=== PATIENT | male | born 1995 | race Caucasian/White ===

== ENCOUNTER 2021-06-09 12:35 | Outpatient (REF) | payer BC, SELFPAY ==
[2021-06-09 14:48] LABS: Alanine Aminotransferase 41 U/L (0-40); Albumin Level 4.6 g/dL (3.5-5.0); Alkaline Phosphatase 67 U/L (39-117); Anion Gap 11 (12-20); Aspartate Amino Transferase 27 U/L (5-37); Bilirubin Total 1.7 mg/dL (0.0-1.0); Blood Urea Nitrogen 14 mg/dL (9-16); Calcium 9.5 mg/dL (8.4-10.2); Carbon Dioxide 29 mmol/L (22-29); Chloride 104 mmol/L (96-108); Cholesterol 212 mg/dL; Estimated Glomerular Filt Rate > 60; Glucose Fasting 79 mg/dL (60-99); HDL Cholesterol 39 mg/dL; LDL Cholesterol Calculated 155 mg/dl; Potassium 3.9 mmol/L (3.3-5.1); Sodium 140 mmol/L (135-145); Total Protein 7.1 g/dL (6.5-8.0); Triglycerides 91 mg/dL
== END 2021-06-09 12:36 | disposition home or self-care (01) ==
LOC: HO.HMGCLDS 12:35
PROVIDERS: PCP Internal Medicine; Visit Provider Internal Medicine
DX: Z00.00 Encounter for general adult medical examination without abnormal findings (principal)
CPT/HCPCS: 36415; 80053; 80061

== ENCOUNTER 2021-10-21 09:32 | Outpatient (REF) | payer BC, SELFPAY ==
[2021-10-21 11:41] LABS: COVID-19 Test Positive (Negative); IDNOW Serial# 16C4AD1C
== END 2021-10-21 09:33 | disposition home or self-care (01) ==
LOC: HO.LAB 09:32
PROVIDERS: Visit Provider Internal Medicine
DX: Z20.822 Contact with and (suspected) exposure to COVID-19 (principal)
CPT/HCPCS: 87635; C9803

== ENCOUNTER 2021-10-26 09:21 | Outpatient (REF) | payer BC, SELFPAY ==
[2021-10-26 10:19] LABS: COVID-19 Test Negative (Negative); IDNOW Serial# 16C4AD1C
== END 2021-10-26 09:22 | disposition home or self-care (01) ==
LOC: HO.LAB 09:21
PROVIDERS: Visit Provider Internal Medicine
DX: Z20.822 Contact with and (suspected) exposure to COVID-19 (principal)
CPT/HCPCS: 87635; C9803

== ENCOUNTER 2023-02-01 12:40 | Outpatient (REF) | payer BC, SELFPAY ==
[2023-02-01 13:57] LABS: MANUAL DIFF FLAG NO
[2023-02-01 14:00] LABS: Basophils Absolute Auto 0.1 X10*3/uL (0.0-0.2); Basophils Percent Auto 0.9 % (0-2); Eosinophils Absolute Auto 0.1 X10*3/uL (0.0-0.4); Eosinophils Percent Auto 1.7 % (0-4); Hematocrit 49.1 % (42.0-52.0); Hemoglobin 16.5 g/dl (14.0-18.0); Imm Gran Abs Auto 0.05 X10*3/uL (0.00-0.03); Imm Gran Pct Auto 0.6 % (0.0-0.4); Lymphocytes Absolute Auto 2.6 X10*3/uL (1.2-4.9); Lymphocytes Percent Auto 32.4 % (20-40); Mean Corpuscular HGB Conc 33.6 g/dl (31.0-36.0); Mean Corpuscular Hemoglobin 30.8 pg (27.0-33.0); Mean Corpuscular Volume 91.6 fL (80.0-98.0); Mean Platelet Volume 10.2 fL (9.4-12.4); Monocytes Absolute Auto 0.9 X10*3/uL (0.1-1.2); Monocytes Percent Auto 10.5 % (2-11); Neutrophils Absolute Auto 4.4 x10*3/uL (2.0-8.3); Neutrophils Percent Auto 53.9 % (45-73); Platelet Count 209 X10*3/uL (160-400); Red Blood Count 5.36 X10*6/uL (4.60-5.80); Red Cell Distribution Width 11.8 % (11.0-16.0); White Blood Count 8.1 X10*3/uL (4.8-10.8)
[2023-02-01 14:27] LABS: Alanine Aminotransferase 20 U/L (0-40); Albumin Level 4.7 g/dL (3.5-5.0); Alkaline Phosphatase 69 U/L (39-117); Anion Gap 12 (12-20); Aspartate Amino Transferase 20 U/L (5-37); Bilirubin Total 2.3 mg/dL (0.0-1.0); Blood Urea Nitrogen 16 mg/dL (9-16); Calcium 9.3 mg/dL (8.4-10.2); Carbon Dioxide 29 mmol/L (22-29); Chloride 104 mmol/L (96-108); Cholesterol 235 mg/dL; Estimated Glomerular Filt Rate > 60; Glucose Fasting 89 mg/dL (60-99); HDL Cholesterol 38 mg/dL; LDL Cholesterol Calculated 166 mg/dl; Potassium 4.4 mmol/L (3.3-5.1); Sodium 141 mmol/L (135-145); Total Protein 7.3 g/dL (6.5-8.0); Triglycerides 157 mg/dL
== END 2023-02-01 12:41 | disposition home or self-care (01) ==
LOC: HO.HMGCLDS 12:40
PROVIDERS: PCP Internal Medicine; Visit Provider Internal Medicine
DX: Z00.00 Encounter for general adult medical examination without abnormal findings (principal); E78.5 Hyperlipidemia, unspecified
CPT/HCPCS: 36415; 80053; 80061; 85025

== ENCOUNTER 2023-03-08 16:00 | Outpatient (RCR) | payer BC, SELFPAY ==
--- NOTE | 2023-01-20 15:52 | MHC.PT.EP ---
[facility] [place] Office [place] Office [place] Office [address] Jam Esparza [address] [phone] F: [phone] F: [phone] F: [phone] F: [phone] Physical Therapy Plan of Care Date of Evaluation: Date of Surgery: n/a Diagnosis: pain in R shoulder, neck strain Assessment: Patient is a 27 year old male presenting to PT with complaints of pain in his R shoulder and neck. Pt reports onset of pain began about 1 year ago due to injuring his shoulder when lifting and it progressively made its way to his neck. He presents today with impairments in pain, cervical ROM, DNF strength, periscap strength, posture. 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 Pt expresses penitentiary goal of returning to PLOF, and is motivated to work towards this in PT. Clinical presentation today is most consistent with signs and sx associated with R shoulder and neck pain and pt will benefit from skilled PT 2 week x 4 weeks to address the following problems and impairments noted upon evaluation: pain, cervical ROM, DNF strength, periscap strength, posture. These problems limit the patient with the following functional activities: reaching, working, pulling, looking down, boxing>10 min. The prescribed treatment plan of care is medically necessary. Co-morbidities of none were identified and taken into considerations of plan of care. Pt was educated on HEP, role of PT, prognosis, POC. Frequency and Duration: The patient will be seen 2 x week x 4 weeks Short Term Goals: Pt will demonstrate improved periscap strength by 1/3 grade in 2 weeks for improved scap stability. Pt will demonstrate less ttp to UT in 2 weeks. Pt will demonstrate compliance with initial HEP in 2 visits. Jail Goals: Pt will demonstrate improved NDI by 5% in 4 weeks for improved functional mobility. Pt will demonstrate improved SPADI score by 13 points in 4 weeks for improved functional mobility. Pt will demonstrate ability to work with min to no pain or discomfort in 4 weeks for return to PLOF. Treatment Plan: Modalities to reduce pain, spasms and effusion. Manual therapy to restore motion and function. Therapeutic exercise to improve strength and flexibility. Neuromuscular re-education for posture and balance. Therapeutic activities to return to functional activities of daily living. Electronically signed by: Chrystal Villarreal, PT, DPT, ATC Please sign and return to therapist. Thank you for your referral.
--- NOTE | 2023-04-07 08:50 | MHC.PT.DC ---
[facility] [place] Office [place] Office [place] Office [address] Jam Esparza [address] [phone] F: [phone] F: [phone] F: [phone] F: [phone] Physical Therapy Discharge Report Diagnosis: pain in R shoulder, neck strain Date of Surgery: n/a Date of Evaluation: 01/20/23 Date of Discharge: 04/07/23 Treatments to Date: 7 Cancellations to Date: 4 No Shows to Date: 2 Discharge Status: Visit Non-compliance Discharge Summary: Pt has failed to comply with [facility] attendance policy and no showed the last 2 visits. Pt to be d/c per policy. Electronically signed by: Chrystal Villarreal PT, DPT, ATC Please sign and return to therapist. Thank you for your referral.
== END 2023-04-07 08:50 | disposition home or self-care (01) ==
LOC: HO.PTCHIC 16:00
PROVIDERS: PCP Internal Medicine; Visit Provider Internal Medicine
DX: M25.511 Pain in right shoulder (principal)
CPT/HCPCS: 97110; 97140; 97161

== ENCOUNTER 2023-05-09 08:10 | Outpatient (AMB) | payer BC, SELFPAY ==
--- NOTE | 2023-05-09 08:15 | MHC.OFFWIV ---
Intake Vital Signs 05/09/23 08:16 Pulse 56 Pulse Source Pulse Oximeter Temp 98.1 F Temp Source Oral Pulse Oximetry (%) 98 Oxygen Delivery Method Room Air Intake Visit Reasons: EP Sore throat, Pain, Vision RT eye Intake Note: Pt states pain in throat near lymph node, vision blur started this morning OD 20/15 OS 20/30 OU 20/15 Patient Tobacco Use Status: Never used Tobacco Allergies No Known Allergies Allergy (Verified 05/09/23 09:20) Medication List - Last Reconciled 05/09/23 by Osorio Dao MD No Known Home Meds Do you need a note to return to daycare/school/sports/work: Yes HPI EP Sore throat, Pain, Vision RT eye HPI Details 27-year-old male presents to the office for a sick visit. Patient is reporting symptoms of pain on swallowing. Symptoms present for the past few days. Pain is also present when he turns his head to the right side. Feeling tired. No fevers or chills. No nausea or vomiting. [facility] Medical History Annual physical exam Hyperlipidemia Shoulder pain, right Tinnitus Vertigo Surgical History No pertinent past surgical history Family History Mother No problems noted. Social History Household Members Other:: lives with parents, works for [employer] Housing: House Patient Tobacco Use Status: Never used Tobacco e-Cigarette/Vaping Use: Never Used Second Hand Smoke Exposure: Yes Current occupational status: employed Cognitive needs: No Hearing needs: No Vision needs: No Physical Exam Vital Signs: Last Vital Signs Temp 98.1 F 05/09/23 08:16 Pulse 56 05/09/23 08:16 Pulse Ox 98 05/09/23 08:16 Oxygen Delivery Method Room Air 05/09/23 08:16 Const General: cooperative and healthy appearing Nutritional Appearance: well nourished Orientation/consciousness: patient oriented x3 Limitations: no limitations HEENT Head: Yes normal to inspection Eyes General: appearance normal, both eyes and all related structures Neck Other: Solitary painful lymph node behind the sternocleidomastoids on the right side. Neck: Yes normal visual inspection Chest Chest palpation & inspection: normal palpation of entire chest wall Resp Effort & Inspection: normal respiratory effort Neuro General: patient oriented x3 Results AMB Rapid Strep AMB Rapid Strep Negative Last Edit by Jessica Armstrong CMA on 05/09/23 09:11 Results Reviewed Results Reviewed: Laboratory Last Values Strep Scn Rapid Clinic Negative 05/09/23 09:10 Assessment & Plan Assessment & Plan (1) Cervical lymphadenopathy: Code(s): R59.0 - Localized enlarged lymph nodes Plan: Antibiotics called in. Increase fluid intake. Strep test reviewed. Orders: Orders AMB Rapid Strep Screen Today Z13.9 - Encounter for screening, unspecified Coding Level of Care Code Est Pt Level 3 (91063) Diagnoses Cervical lymphadenopathy R59.0
[2023-05-09 08:16] VITALS: PULSE 56; TEMP 36.7; O2SAT 98
== END 2023-05-09 09:56 | disposition home or self-care (01) ==
PROVIDERS: PCP Internal Medicine; Visit Provider Internal Medicine
DX: Z13.9 Encounter for screening, unspecified (principal); R59.0 Localized enlarged lymph nodes
CPT/HCPCS: 87880; 99213

== ENCOUNTER 2023-05-10 08:07 | Outpatient (AMB) | payer BC, SELFPAY ==
--- NOTE | 2023-05-10 08:38 | AM.OFFWIN_ITS ---
Intake Vital Signs 05/10/23 08:43 Height 5 ft 8 in BP 100/60 Blood Pressure Location Rt brachial Position Sitting Pulse 81 Pulse Source Pulse Oximeter Temp 97.8 F Temp Source Temporal Artery Scan Pulse Oximetry (%) 98 Oxygen Delivery Method Room Air Intake Visit Reasons: EP Swollen Glands/Fever,headache [phone] Patient Tobacco Use Status: Never used Tobacco Allergies No Known Allergies Allergy (Verified 05/09/23 09:20) Do you need a note to return to daycare/school/sports/work: No HPI HPI Comments History of Present Illness Details [id number] 27-year-old male history of tinnitus presents for a sick visit reporting fatigue, malaise, subjective fevers and chills, swollen lymph nodes, headache (diffuse in nature, feels like typical, pressure-like bilaterally) throat d iscomfort for the past few days worsening. Was seen here yesterday is on keflex, taking as prescribed. No known sick contacts. Denies chest pain, shortness of breath, dizziness, vision changes, weakness, nausea, vomiting, abdominal pain. PE- Pharynx normal.? Uvula midline. Bilateral tonsils erythematous, no edema, no exudate, no signs of abscess. Speaking in full sentences controlling secre tions well. Submandibular lymphadenopathy bilaterally. Neuro nonfocal cerebellar intact Likely upper respiratory infection versus viral illness versus sinusitis vs pharyngitis. No signs of peritonsillar, retropharyngeal, epiglottitis. No signs of threatened airway. No signs of pneumonia. Unlikely meningitis or encephalitis. Unlikely stroke, posterior stroke, intracranial hemorrhage. Strep negative yesterday, no need for repeat test, patient also on antibiotics Plan should continue to take his antibiotics, will prescribe prednisone. Educated patient on diagnosis and treatment plan, answered all question, patient verbalizes understanding. At this time patient will be discharged home, advised to return with new or worsening symptoms. Educated on worrisome signs and symptoms and when to return. At this time I feel comfortable discharge home. [facility] Medical History Annual physical exam Hyperlipidemia Shoulder pain, right Tinnitus Vertigo Surgical History No pertinent past surgical history Family History Mother No problems noted. Social History Household Members Other:: lives with parents, works for [employer] Housing: House Patient Tobacco Use Status: Never used Tobacco e-Cigarette/Vaping Use: Never Used Second Hand Smoke Exposure: Yes Current occupational status: employed Cognitive needs: No Hearing needs: No Vision needs: No Review of Systems Const Details: Constitutional : No Weight loss, + Fever, + Chills, + Fatigue, + Malaise ENT/Mouth : + sore throat, No Rhinorrhea Eyes: No Eye Pain, No Swelling, No Redness Cardiovascular : No Chest Pain, No SOB, No Dyspnea on Exertion, No Orthopnea, No Edema, No Palpitations Respiratory : No Cough, No Sputum, No Wheezing Gastrointestinal : No Nausea, No Vomiting, No Diarrhea, No Constipation, No abdominal Pain, No Hematochezia, No Melena Genitourinary : No Dysuria, No Urinary Frequency, No Hematuria, Musculoskeletal : No joint pain, No Myalgias, No Joint Swelling Skin : No Skin Lesions, No rash Neuro : No Weakness, No Numbness, No Dizziness, No Headache Psych : No Anxiety/Panic, No Depression All other systems reviewed and are negative All systems reviewed & are unremarkable except as noted in HPI and below Physical Exam Vital Signs: Last Vital Signs Temp 97.8 F 05/10/23 08:43 Pulse 81 05/10/23 08:43 BP 100/60 05/10/23 08:43 Pulse Ox 98 05/10/23 08:43 Oxygen Delivery Method Room Air 05/10/23 08:43 Vital signs stable Appearance: Alert.? Oriented X3.? No acute distress.? Nontoxic appearing Head: Normocephalic, atraumatic, no step-offs or deformities Eyes: Pupils equal, round and reactive to light.? ENT: Pharynx normal.? Uvula midline. Bilateral tonsils erythematous, no edema, no exudate, no signs of abscess. Speaking in full sentences controlling secretions well. Submandibular lymphadenopathy bilaterally. Neck: Normal inspection.? Neck supple.? CVS: Normal heart rate and rhythm.? Pulses normal.? Respiratory: No respiratory distress.? Breath sounds normal.? Abdomen: Soft and nontender.? Skin: Skin warm and dry.? Normal skin color.? Normal skin turgor.? Extremities: No lower extremity edema.? No calf ttp. 5/5 strength to bilateral upper and lower extremities Neuro: Oriented X 3.? No motor deficit.? No sensory deficit. CN 2-12 intact . Normal luxcgx-ku-aadk, xzni-rv-wonf, steady tandem gait. NIH stroke scale 0. Assessment & Plan Assessment & Plan (1) Upper respiratory infection: Code(s): J06.9 - Acute upper respiratory infection, unspecified (2) Lymphadenopathy: Code(s): R59.1 - Generalized enlarged lymph nodes Plan Take your medications as prescribed. If you were prescribed antibiotics today, it is important that you take your medication to their entirety, do not skip any doses, do not finish them early. Follow-up with your primary care provider this week. Return to the emergency department with new or worsening symptoms. Such as fevers, chills, chest pain, shortness of breath, nausea, vomiting, dizziness, headache, vision changes, lethargy In case of emergency call 911 Medications: New prednisone 20 mg PO DAILY 5 days 5 tabs 0RF Coding Level of Care Code Est Pt Level 3 (68588) Diagnoses Upper respiratory infection J06.9 Lymphadenopathy R59.1
[2023-05-10 08:43] VITALS: BP 100/60; PULSE 81; TEMP 36.6; O2SAT 98
== END 2023-05-10 08:59 | disposition home or self-care (01) ==
PROVIDERS: PCP Internal Medicine; Visit Provider Physician Assistant
DX: J06.9 Acute upper respiratory infection, unspecified (principal); R59.1 Generalized enlarged lymph nodes
CPT/HCPCS: 99213

== ENCOUNTER 2023-09-23 09:50 | Outpatient (AMB) | payer BC, SELFPAY ==
--- NOTE | 2023-09-23 11:08 | AM.OFFWIN_ITS ---
Intake Vital Signs 09/23/23 11:11 Height 5 ft 8 in Weight 81.647 kg BMI 27.4 BP 120/66 Blood Pressure Location Rt brachial Position Sitting Pulse 62 Pulse Source Pulse Oximeter Temp 97.6 F Temp Source Oral Pulse Oximetry (%) 98 Oxygen Delivery Method Room Air Intake Visit Reasons: EP Covid Testing work note 234 Intake Note: Patient here for covid symptoms and would like to be tested. Patient Tobacco Use Status: Never used Tobacco Allergies No Known Allergies Allergy (Verified 09/23/23 11:10) Do you need a note to return to daycare/school/sports/work: Yes HPI HPI Comments History of Present Illness Details 28-year-old male presents with fatigue, malaise since last Monday, having intermittent coughs as well. He thinks he got sick at a [employer] green party. He is here requesting a work no and requesting to get COVID tested prior to returning to work. He took yesterday off. Secondary to not feeling well. At this time denies fevers, chills, chest pain, shortness of breath, nausea, vomiting, abdominal pain Physical exam benign This is likely viral illness. Will rule out COVID. Signs of acute respiratory distress, ACS, PE, dissection. Plan COVID test. Educated patient on diagnosis and treatment plan, answered all question, patient verbalizes understanding. At this time patient will be discharged home, advised to return with new or worsening symptoms. Educated on worrisome signs and symptoms and when to return. At this time I feel comfortab le discharge home. [facility] Medical History Hyperlipidemia Shoulder pain, right Annual physical exam Tinnitus Vertigo Surgical History No pertinent past surgical history Family History Mother No problems noted. Social History Household Members Other:: lives with parents, works for [employer] Housing: House Patient Tobacco Use Status: Never used Tobacco e-Cigarette/Vaping Use: Never Used Second Hand Smoke Exposure: Yes Current occupational status: employed Cognitive needs: No Hearing needs: No Vision needs: No Review of Systems Const Details: Constitutional : No Weight loss, No Fever, No Chills, + Fatigue, + Malaise ENT/Mouth : No sore throat, No Rhinorrhea Eyes: No Eye Pain, No Swelling, No Redness Cardiovascular : No Chest Pain, No SOB, No Dyspnea on Exertion, No Orthopnea, No Edema, No Palpitations Respiratory : + Cough, No Sputum, No Wheezing Gastrointestinal : No Nausea, No Vomiting, No Diarrhea, No Constipation, No abdominal Pain, No Hematochezia, No Melena Genitourinary : No Dysuria, No Urinary Frequency, No Hematuria, Musculoskeletal : No joint pain, No Myalgias, No Joint Swelling Skin : No Skin Lesions, No rash Neuro : No Weakness, No Numbness, No Dizziness, No Headache Psych : No Anxiety/Panic, No Depression All other systems reviewed and are negative All systems reviewed & are unremarkable except as noted in HPI and below Physical Exam Vital Signs: Last Vital Signs Temp 97.6 F 09/23/23 11:11 Pulse 62 09/23/23 11:11 BP 120/66 09/23/23 11:11 Pulse Ox 98 09/23/23 11:11 Oxygen Delivery Method Room Air 09/23/23 11:11 BMI result Body Mass Index 27.4 vss Appearance: Alert.? Oriented X3.? No acute distress.? Head: Normocephalic, atraumatic, no step-offs or deformities Eyes: Pupils equal, round and reactive to light.? ENT: Pharynx normal.? Neck: Normal inspection.? Neck supple.? CVS: Normal heart rate and rhythm.? Pulses normal.? Respiratory: No respiratory distress.? Breath sounds normal.? Abdomen: Soft and nontender.? Skin: Skin warm and dry.? Normal skin color.? Normal skin turgor.? Extremities: No lower extremity edema.? No calf ttp. 5/5 strength to bilateral upper and lower extremities Neuro: Oriented X 3.? No motor deficit.? No sensory deficit. CN 2-12 intact Assessment & Plan Assessment & Plan (1) Viral illness: Code(s): B34.9 - Viral infection, unspecified Plan Take your medications as prescribed. If you were prescribed antibiotics today, it is important that you take your medication to their entirety, do not skip any doses, do not finish them early. Follow-up with your primary care provider this week. Return to the emergency department with new or worsening symptoms. In case of emergency call 911 Orders: Orders BinaxNOW Covid-19 Ag Today R53.83 - Other fatigue Coding Level of Care Code Est Pt Level 3 (86125) Diagnoses Viral illness B34.9
[2023-09-23 11:11] VITALS: BP 120/66; PULSE 62; TEMP 36.4; O2SAT 98; BMI 27.4
== END 2023-09-23 13:18 | disposition home or self-care (01) ==
PROVIDERS: PCP Internal Medicine; Visit Provider Physician Assistant
DX: B34.9 Viral infection, unspecified (principal)
CPT/HCPCS: 99213

== ENCOUNTER 2023-09-23 11:24 | Outpatient (REF) | payer BC, SELFPAY ==
[2023-09-23 12:19] LABS: Binax Internal Control QC Valid; Binax Now Covid-19 Ag Negative (Negative); Binax Performed by: HO.BONILM
== END 2023-09-23 11:25 | disposition home or self-care (01) ==
LOC: HO.HMGCLDS 11:24
PROVIDERS: PCP Internal Medicine; Visit Provider Physician Assistant
DX: Z11.52 Encounter for screening for COVID-19 (principal); R53.83 Other fatigue
CPT/HCPCS: 87811; C9803

== ENCOUNTER 2024-02-06 11:22 | Outpatient (AMB) | payer BC, SELFPAY ==
[2024-02-06 11:22] VITALS: BP 114/70; PULSE 56; O2SAT 96; BMI 29.2
--- NOTE | 2024-02-06 11:22 | A.OFFPC_ITS ---
Vital Signs 02/06/24 11:22 Height 5 ft 8 in Weight 192 lb BMI 29.2 BP 114/70 Blood Pressure Location Lt brachial Position Sitting Pulse 56 Pulse Source Pulse Oximeter Pulse Oximetry (%) 96 Oxygen Delivery Method Room Air Intake Visit Reasons: Annual PE Intake Note: Pt is here today for PE. Allergies No Known Allergies Allergy (Verified 02/06/24 11:26) Medication List - Last Reconciled 02/06/24 by Michelle Larsen MD No Known Home Meds Tobacco use date assessed: 02/06/24 Dental Screening Dental Screen Date: 02/06/24 Did you have a dental visit in the last 12 months?: Yes Did you have a dental problem in the last 6 months where you did not have access to dental care?: No Was dental information given to patient?: Patient has dentist HPI Annual PE HPI Details Pt presents for PE. PFSH Medical History Hyperlipidemia Shoulder pain, right Annual physical exam Tinnitus Vertigo Surgical History No pertinent past surgical history Family History Mother No problems noted. Social History Household Members Other:: lives with parents, works for [employer] Housing: House Patient Tobacco Use Status: Never used Tobacco e-Cigarette/Vaping Use: Never Used Second Hand Smoke Exposure: Yes service: No Current occupational status: employed Cognitive needs: No Hearing needs: No Vision needs: No Questionnaire Thrive Questionnaire Date Thrive assessed: 02/01/23 I am a: Patient What is your living situation today?: I have a steady place to live Within the past 12 months, did the food you bought not last and you didn't have the money to get more?: Never true Within the past 12 months, did you worry whether your food would run out before you got money to buy more?: Never true THRIVE Score: 0 AUDIT C Alcohol Use Questionnaire (AUDIT-C) 1. How often do you have a drink containing alcohol?: 2-4 times a month 2. How many drinks containing alcohol do you have on a typical day when you are drinking?: 1 or 2 3. How often do you have six or more drinks on one occasion?: Never Total Score: 2 FAMILIA-7 AMB Questionnaire FAMILIA-7 Date FAMILIA - 7 assessed: 02/01/23 Feeling nervous, anxious, or on edge: 1 = Several days Not being able to stop or control worryin = Not at all Worrying too much about different things: 1 = Several days Trouble relaxin = Not at all Being so restless that it is hard to sit still: 0 = Not at all Becoming easily annoyed or irritable: 0 = Not at all Feeling afraid as if something awful might happen: 1 = Several days Total FAMILIA-7 score (0-4 normal; 5-9 mild; 10-14 moderate; 15-21 severe): 3 Source: Developed by Drs. Kang Givens, Sherly Ball, Nick Junior and colleagues, with an educational freddy from [employer]. Review of Systems Const All systems reviewed & are unremarkable except as noted in HPI and below Reports no additional complaints Eyes Reports no additional complaints ENT Reports no additional complaints Card Reports no additional complaints Resp Reports no additional complaints GI Reports no additional complaints Reports no additional complaints Physical exam (Primary Care) Vital Signs: Last Vital Signs Pulse 56 02/06/24 11:22 BP 114/70 02/06/24 11:22 Pulse Ox 96 02/06/24 11:22 Oxygen Delivery Method Room Air 02/06/24 11:22 BMI result Body Mass Index 29.2 Tobacco/Smoking Status: Tobacco use Status Tobacco use date assessed 02/06/24 02/06/24 11:28 Patient Tobacco Use Status Never used Tobacco 02/06/24 11:28 e-Cigarette/Vaping Use Never Used 02/06/24 11:28 Thrive Assessment: Date of Thrive Assessment Date Thrive assessed 02/01/23 02/06/24 11:28 Const General: no acute distress HENMT Head: Yes normal to inspection Ears: hearing grossly normal bilaterally Face and sinus: Yes normal facial exam Mouth: Normal oral and palatal mucosa present Throat: Yes posterior oropharynx normal Eyes General: appearance normal, both eyes and all related structures Neck Neck: Yes no lymphadenopathy and Yes supple Resp Effort & Inspection: normal respiratory effort Auscultation: clear to auscultation bilaterally Cardio Rhythm: regular rhythm Heart sounds: S1 normal heart sound present and S2 normal heart sound present GI Inspection: Yes normal to inspection Palpation (GI): Soft to palpation Percussion: Yes normal to percussion Auscultation: normal bowel sounds Assessment and Plan Assessment & Plan (1) Annual physical exam: Code(s): Z00.00 - Encounter for general adult medical examination without abnormal findings Plan: Well-balanced diet regular physical activity discussed with the patient (2) Hyperlipidemia: Code(s): E78.5 - Hyperlipidemia, unspecified Plan: Low-cholesterol diet discussed with the patient he will have blood work today and in 6 months Orders: Orders Lipid Panel Today E78.5 - Hyperlipidemia, unspecified, Z00.00 - Encounter for general adult medical examination without abnormal findings Syphilis Screen Today Z00.00 - Encounter for general adult medical examination without abnormal findings CT NG by PCR Today Z00.00 - Encounter for general adult medical examination without abnormal findings Lipid Panel 6 Months E78.5 - Hyperlipidemia, unspecified Comprehensive Dola. Panel Fast Today E78.5 - Hyperlipidemia, unspecified, Z00.00 - Encounter for general adult medical examination without abnormal findings Complete Blood Count Auto Diff Today E78.5 - Hyperlipidemia, unspecified, Z00.00 - Encounter for general adult medical examination without abnormal findings Hepatitis B,C Profile Today E78.5 - Hyperlipidemia, unspecified, Z00.00 - Encounter for general adult medical examination without abnormal findings UA w Microscopic Today E78.5 - Hyperlipidemia, unspecified, Z00.00 - Encounter for general adult medical examination without abnormal findings HIV Ab/Ag Today Z00.00 - Encounter for general adult medical examination without abnormal findings Coding Level of Care Code Est Pt Prev Care 18-39y(47683) Diagnoses Annual physical exam Z00.00 Hyperlipidemia E78.5
== END 2024-02-06 12:00 | disposition home or self-care (01) ==
PROVIDERS: Visit Provider Internal Medicine
DX: Z00.00 Encounter for general adult medical examination without abnormal findings (principal); E78.5 Hyperlipidemia, unspecified
CPT/HCPCS: 99395

== ENCOUNTER 2024-02-06 11:48 | Outpatient (REF) | payer BC, SELFPAY ==
[2024-02-06 13:20] LABS: Appearance Urine Clear; Color Urine Yellow; Glucose Urine UA Negative (Negative); Leukocyte Esterase Urine Trace (Negative); Nitrite Urine Negative (Negative); PH 6.5 (5.0-9.0); UMIC TRIGGER UA YES; Urine Blood Negative (Negative); Urine Ketones Negative (Negative); Urine Protein Negative (Neg-Trace)
[2024-02-06 13:23] LABS: MANUAL DIFF FLAG NO
[2024-02-06 13:28] LABS: Bacteria Urine None Seen (None Seen); Hyaline Casts Urine 0-2 /LPF (0-2); RBC Urine 0-2 /HPF (0-2); Squamous Epithelial Cell Urine 0-2 /HPF (0-2); WBC Urine 0-5 /HPF (0-5)
[2024-02-06 13:28] LABS: Basophils Absolute Auto 0.1 X10*3/uL (0.0-0.2); Eosinophils Absolute Auto 0.1 X10*3/uL (0.0-0.4); Eosinophils Percent Auto 2.4 % (0-4); Hematocrit 44.3 % (42.0-52.0); Hemoglobin 15.1 g/dl (14.0-18.0); Imm Gran Abs Auto 0.02 X10*3/uL (0.00-0.03); Imm Gran Pct Auto 0.3 % (0.0-0.4); Lymphocytes Percent Auto 34.4 % (20-40); Mean Corpuscular HGB Conc 34.1 g/dl (31.0-36.0); Mean Corpuscular Hemoglobin 31.4 pg (27.0-33.0); Mean Corpuscular Volume 92.1 fL (80.0-98.0); Mean Platelet Volume 10.4 fL (9.4-12.4); Monocytes Absolute Auto 0.6 X10*3/uL (0.1-1.2); Monocytes Percent Auto 10.8 % (2-11); Neutrophils Percent Auto 51.1 % (45-73); Platelet Count 206 X10*3/uL (160-400); Red Blood Count 4.81 X10*6/uL (4.60-5.80); Red Cell Distribution Width 11.5 % (11.0-16.0); White Blood Count 5.9 X10*3/uL (4.8-10.8)
[2024-02-06 14:00] LABS: Alanine Aminotransferase 23 U/L (0-40); Albumin Level 4.6 g/dL (3.5-5.0); Alkaline Phosphatase 55 U/L (39-117); Anion Gap 12 (12-20); Aspartate Amino Transferase 22 U/L (5-37); Bilirubin Total 1.5 mg/dL (0.0-1.0); Blood Urea Nitrogen 12 mg/dL (9-16); Calcium 9.7 mg/dL (8.4-10.2); Carbon Dioxide 29 mmol/L (22-29); Chloride 105 mmol/L (96-108); Cholesterol 205 mg/dL (<200); Estimated Glomerular Filt Rate > 60; Glucose Fasting 91 mg/dL (60-99); HDL Cholesterol 37 mg/dL (>40); LDL Cholesterol Calculated 145 mg/dL (<100); Potassium 4.1 mmol/L (3.3-5.1); Sodium 142 mmol/L (135-145); Total Protein 7.5 g/dL (6.5-8.0); Triglycerides 117 mg/dL (<150)
[2024-02-06 15:15] LABS: CT PCR NOT DETECTED (Not Detect.); NG PCR NOT DETECTED (Not Detect.)
[2024-02-07 04:04] LABS: Syphilis Screen Nonreactive (Nonreactive)
[2024-02-07 04:21] LABS: HBS Num1 0.95 mIU/mL (0-7.99); HBc Num1 0.07 S/CO (0.00-0.79); HBsAGNum1 0.28 S/CO (0.00-0.99); HIV AB/AG Nonreactive (Nonreactive); HIV Num 1 0.04 S/CO (0.00-0.99); Hepatitis B Core Antibody Nonreactive (Nonreactive); Hepatitis B Surface Antigen Negative (Negative); ~HepC Num1 0.06 S/CO (0.00-0.79); ~Hepatitis B Surface Antibody NONREACTIVE (Nonreactive); ~Hepatitis C Antibody Nonreactive (Nonreactive)
== END 2024-02-06 11:49 | disposition home or self-care (01) ==
LOC: HO.HMGCLDS 11:48
PROVIDERS: PCP Internal Medicine; Visit Provider Internal Medicine
DX: E78.5 Hyperlipidemia, unspecified (principal); Z00.00 Encounter for general adult medical examination without abnormal findings
CPT/HCPCS: 0353U; 80053; 80061; 81001; 85025; 86704; 86706; 86780; 86803; 87340; 87389

== ENCOUNTER 2024-07-06 09:25 | Outpatient (REF) | payer BC, SELFPAY ==
[2024-07-06 11:43] LABS: Cholesterol 227 mg/dL (<200); HDL Cholesterol 39 mg/dL (>40); LDL Cholesterol Calculated 163 mg/dL (<100); Triglycerides 125 mg/dL (<150)
== END 2024-07-06 09:26 | disposition home or self-care (01) ==
LOC: HO.HMGCLDS 09:25
PROVIDERS: PCP Internal Medicine; Visit Provider Internal Medicine
DX: E78.5 Hyperlipidemia, unspecified (principal)
CPT/HCPCS: 36415; 80061

== ENCOUNTER 2024-07-08 12:50 | Outpatient (AMB) | payer BC, SELFPAY ==
--- NOTE | 2024-07-08 12:54 | A.OFFPC_ITS ---
Vital Signs 07/08/24 12:55 Height 5 ft 8 in Weight 188 lb BMI 28.6 BP 96/64 Blood Pressure Location Rt brachial Position Sitting Pulse 75 Pulse Source Pulse Oximeter Pulse Oximetry (%) 98 Oxygen Delivery Method Room Air Intake Visit Reasons: Follow up for high cholesterol screening Intake Note: Pt is here today for a follow up visit. Pt c/o R lower back pain that starts wh en he is laying down and when he moves aground it goes away. Allergies No Known Allergies Allergy (Verified 07/08/24 12:56) Medication List - Last Reconciled 07/08/24 by Michelle Larsen MD No Known Home Meds Tobacco use date assessed: 07/08/24 Dental Screening Dental Screen Date: 02/06/24 HPI Follow up for high cholesterol screening HPI Details Patient presents for the follow-up of hyperlipidemia. He has been eating ice cream, cheese and drinking a lot of milk and having steak 3 times a week. Patient complains of chronic right-sided mid back pain positional, occasionally radiating to right side mid abdomen. Patient denies dysuria urinary frequency hematuria nausea vomiting abdominal pain after eating, weakness or numbness in lower extremities. [facility] Medical History Hyperlipidemia Shoulder pain, right Annual physical exam Tinnitus Vertigo Surgical History No pertinent past surgical history Family History Mother No problems noted. Social History Household Members Other:: lives with parents, works for [employer] Housing: House Patient Tobacco Use Status: Never used Tobacco e-Cigarette/Vaping Use: Never Used Second Hand Smoke Exposure: Yes service: No Current occupational status: employed Cognitive needs: No Hearing needs: No Vision needs: No Questionnaire PHQ-9 Over the last 2 weeks, how often have you been bothered by any of the following problems? 1. Little interest or pleasure in doing things: not at all 2. Feeling down, depressed, or hopeless: not at all 3. Trouble falling or staying asleep, or sleeping too much: not at all 4. Feeling tired or having little energy: not at all 5. Poor appetite or overeating: not at all 6. Feeling bad about yourself - or that you are a failure or have let yourself or your family down: not at all 7. Trouble concentrating on things, such as reading the newspaper or watching television: not at all 8. Moving or speaking so slowly that other people could have noticed. Or the opposite - being so fidgety or restless that you have been moving around a lot more than usual: not at all 9. Thoughts that you would be better off or of hurting yourself in some way: not at all Total score: 0 Depression Screening Interpretation: Negative Depression Screening Done: Yes 33079 - PHQ-9 Billing: Yes Source: Developed by Drs. Kang Givens, Sherly Ball, Nick Junior and colleagues, with an educational freddy from [employer]. Thrive Questionnaire Date Thrive assessed: 07/08/24 I am a: Patient What is your living situation today?: I have a steady place to live Within the past 12 months, did the food you bought not last and you didn't have the money to get more?: Never true Within the past 12 months, did you worry whether your food would run out before you got money to buy more?: I choose not to answer this question Do you have trouble paying for medicines?: I choose not to answer this question Do you have trouble getting transportation to medical appointments?: No Do you have trouble paying your heating and electricity bill?: No Do you have trouble taking care of your child, family member or friend?: No Do you have trouble with day-to-day activities such as bathing, preparing meals, shopping, managing finances, etc.?: No Are you currently unemployed and looking for a job?: No Are you interested in more education?: No Please select the resources that you would like help with: None Currently or been in a relationship where the following occur: No concerns reported THRIVE Score: 0 AUDIT C Alcohol Use Questionnaire (AUDIT-C) 1. How often do you have a drink containing alcohol?: 2-4 times a month 2. How many drinks containing alcohol do you have on a typical day when you are drinking?: 1 or 2 3. How often do you have six or more drinks on one occasion?: Never Total Score: 2 FAMILIA-7 AMB Questionnaire FAMILIA-7 Date FAMILIA - 7 assessed: 07/08/24 Feeling nervous, anxious, or on edge: 1 = Several days Not being able to stop or control worryin = Not at all Worrying too much about different things: 0 = Not at all Trouble relaxin = Not at all Being so restless that it is hard to sit still: 1 = Several days Becoming easily annoyed or irritable: 0 = Not at all Feeling afraid as if something awful might happen: 0 = Not at all Total FAMILIA-7 score (0-4 normal; 5-9 mild; 10-14 moderate; 15-21 severe): 2 Source: Developed by Drs. Kang Givens, Sherly Ball, Nick Junior and colleagues, with an educational freddy from [employer]. FAMILIA-7 Assessment Billing FAMILIA-7 Assessment Tool: FAMILIA-7 Assessment 16588 Review of Systems Const All systems reviewed & are unremarkable except as noted in HPI and below ENT Reports no additional complaints Card Reports no additional complaints Resp Reports no additional complaints GI Reports no additional complaints Reports no additional complaints Physical exam (Primary Care) Vital Signs: Last Vital Signs Pulse 75 07/08/24 12:55 BP 96/64 07/08/24 12:55 Pulse Ox 98 07/08/24 12:55 Oxygen Delivery Method Room Air 07/08/24 12:55 BMI result Body Mass Index 28.6 Tobacco/Smoking Status: Tobacco use Status Tobacco use date assessed 07/08/24 07/08/24 13:01 Patient Tobacco Use Status Never used Tobacco 07/08/24 13:01 e-Cigarette/Vaping Use Never Used 07/08/24 12:55 PHQ-9: PHQ-9 Score PHQ-9: Total score 0 07/08/24 13:01 Depression Screening Interpretation: Negative Thrive Assessment: Date of Thrive Assessment Date Thrive assessed 07/08/24 07/08/24 13:01 Currently or been in a relationship where the following occur: No concerns reported Const General: no acute distress HENMT Face and sinus: Yes normal facial exam Resp Effort & Inspection: normal respiratory effort Auscultation: clear to auscultation bilaterally Cardio Rhythm: regular rhythm Heart sounds: S1 normal heart sound present and S2 normal heart sound present GI Inspection: Yes normal to inspection Palpation (GI): Soft to palpation Percussion: Yes normal to percussion Auscultation: normal bowel sounds General: Yes no CVA tenderness Back/Spine/Pelvis Other: There is a tenderness muscle spasm, right mid paraspinal thoracic region, straight leg rising 90 degrees bilaterally deep tendon reflexes 2+ bilaterally Back: no CVA tenderness Assessment and Plan Assessment & Plan (1) Back pain: Code(s): M54.9 - Dorsalgia, unspecified Plan: For chronic back pain x-ray of lumbar spine will be obtained and urinalysis will be checked to rule out microscopic hematuria. Lower back exercise discussed with the patient the symptoms persist she will be referred to physical therapy (2) Hyperlipidemia: Code(s): E78.5 - Hyperlipidemia, unspecified Plan: Low-cholesterol diet increase physical activity discussed with the patient he will return for physical in 6 months with a fasting labs before (3) Annual physical exam: Code(s): Z00.00 - Encounter for general adult medical examination without abnormal findings Orders: Orders UA w Microscopic Today M54.9 - Dorsalgia, unspecified Comprehensive [place]. Panel Fast 6 Months E78.5 - Hyperlipidemia, unspecified, Z00.00 - Encounter for general adult medical examination without abnormal findings Lipid Panel 6 Months E78.5 - Hyperlipidemia, unspecified, Z00.00 - Encounter for general adult medical examination without abnormal findings Complete Blood Count Auto Diff 6 Months E78.5 - Hyperlipidemia, unspecified, Z00.00 - Encounter for general adult medical examination without abnormal findings XR lumbar spine 2-3V Today M54.9 - Dorsalgia, unspecified Coding Level of Care Code Est Pt Level 3 (57693) Diagnoses Back pain M54.9 Hyperlipidemia E78.5 Annual physical exam Z00.00 Additional Codes FAMILIA-7 Assessment Billing - FAMILIA-7 Assessment Tool: FAMILIA-7 Assessment 34173 ([id number])
[2024-07-08 12:55] VITALS: BP 96/64; PULSE 75; O2SAT 98; BMI 28.6
== END 2024-07-08 15:03 | disposition home or self-care (01) ==
PROVIDERS: PCP Internal Medicine; Visit Provider Internal Medicine
DX: M54.9 Dorsalgia, unspecified (principal); E78.5 Hyperlipidemia, unspecified; Z00.00 Encounter for general adult medical examination without abnormal findings

== ENCOUNTER → 2024-07-08 12:50 | Outpatient (BNVA) | payer BC, SELFPAY | PROVIDERS: PCP Internal Medicine; Visit Provider Internal Medicine ==

== ENCOUNTER 2024-07-08 13:49 | Outpatient (REF) | payer BC, SELFPAY ==
--- NOTE | ~2024-07-08 | XR_ITS ---
EXAMINATION: XR LUMBOSACRAL SPINE CLINICAL INFORMATION: M54.9 - Dorsalgia, unspecified COMPARISON: None available. TECHNIQUE: Three views of the lumbosacral spine. FINDINGS: The vertebral bodies and posterior elements are normal. The disc spaces are preserved and the vertebral alignment is normal. The paraspinal soft tissues are normal. XR/XR lumbar spine 2-3V IMPRESSION: Normal lumbar spine radiographs. Electronically signed by: Josias Riley MD 09/15/2024 03:19 PM LE[facility]
[2024-07-08 16:49] LABS: Appearance Urine Clear; Color Urine Yellow; Glucose Urine UA Negative (Negative); Leukocyte Esterase Urine Negative (Negative); Nitrite Urine Negative (Negative); Urine Blood Negative (Negative); Urine Ketones Negative (Negative); Urine Protein Negative (Neg-Trace)
[2024-07-08 16:56] LABS: Bacteria Urine None Seen (None Seen); Hyaline Casts Urine 0-2 /LPF (0-2); RBC Urine 0-2 /HPF (0-2); Squamous Epithelial Cell Urine 0-2 /HPF (0-2); WBC Urine 0-5 /HPF (0-5)
== END 2024-07-08 13:50 | disposition home or self-care (01) ==
LOC: HO.HMGCX 13:49
PROVIDERS: PCP Internal Medicine; Visit Provider Internal Medicine
DX: E78.5 Hyperlipidemia, unspecified (principal); M54.9 Dorsalgia, unspecified
CPT/HCPCS: 72100; 81001; 96127

== ENCOUNTER → 2024-07-08 13:57 | Outpatient (BNV) | payer BC, SELFPAY | PROVIDERS: PCP Internal Medicine; Visit Provider Radiology Diagnostic Radiology | DX: M54.9 Dorsalgia, unspecified (principal) | CPT/HCPCS: 72100 ==

== ENCOUNTER 2024-11-01 08:23 | Outpatient (AMB) | payer BC, SELFPAY ==
--- NOTE | 2024-11-01 09:22 | AM.OFFWIN_ITS ---
Intake Vital Signs 11/01/24 09:24 Weight 189 lb BP 100/62 Blood Pressure Location Rt brachial Position Sitting Pulse 50 Pulse Source Pulse Oximeter Temp 97.9 F Temp Source Oral Pulse Oximetry (%) 99 Oxygen Delivery Method Room Air Intake Visit Reasons: EP Stomach troubles Intake Note: Patient here for fevers, stomach pain which started a couple of days ago. Patient Tobacco Use Status: Never used Tobacco Allergies No Known Allergies Allergy (Verified 11/01/24 09:25) Do you need a note to return to daycare/school/sports/work: Yes HPI HPI Comments History of Present Illness Details History of Present Illness - The patient is a 29-year-old male pres enting with gastrointestinal symptoms. - Nausea and vomiting started two days b efore the consultation, noted around 5 or 6 PM. - Diarrhea was present but without hemat ochezia or melena. - Fever was associated with the initial symptoms but resolved by the prior day. - The patient seeks a doctor's note for work-related sick leave due to symptomatic illness. - Advised on hydration, specifically alt ernating water and Gatorade, due to the suspected presence of a Norovirus infection. Physical Exam General: Cooperative, healthy appearing, comfortable, no acute distress and well developed Orientation: Patient oriented x3 Limitations: No limitations Head: Normal to inspection Ears: Hearing grossly normal bilaterally Nose: Normal external nose present Face and sinus: Normal facial exam Eyes: Appearance normal, both eyes and all related structures Neck: Normal visual inspection and Yes full ROM Respiratory: Normal respiratory effort and able to speak in complete sentences. Skin: No rashes or lesions noted Neuro: Patient oriented x3 Extremities: Normal to inspection [facility] Medical History Hyperlipidemia Shoulder pain, right Annual physical exam Tinnitus Vertigo Surgical History No pertinent past surgical history Family History Mother No problems noted. Social History Household Members Other:: lives with parents, works for [employer] Housing: House Patient Tobacco Use Status: Never used Tobacco e-Cigarette/Vaping Use: Never Used Second Hand Smoke Exposure: Yes service: No Current occupational status: employed Cognitive needs: No Hearing needs: No Vision needs: No Review of Systems Const All systems reviewed & are unremarkable except as noted in HPI and below Physical Exam Vital Signs: Last Vital Signs Temp 97.9 F 11/01/24 09:24 Pulse 50 11/01/24 09:24 BP 100/62 11/01/24 09:24 Pulse Ox 99 11/01/24 09:24 Oxygen Delivery Method Room Air 11/01/24 09:24 Assessment & Plan Assessment & Plan (1) Viral gastroenteritis: Code(s): A08.4 - Viral intestinal infection, unspecified Plan: The suspected diagnosis of viral gastroenteritis aligns with the symptomatology presented by the patient. Emphasis was placed on ensuring adequate hydration through consumption of water and electrolyte-rich fluids. The importance of hand hygiene and environmental disinfection using soap and water was communicated to prevent the spread of the Norovirus. The patient was informed of the contagious nature of the virus and advised to monitor his symptoms. Stable vital signs suggest adequate physiological management thus far. A medical note was provided to accommodate workplace policies on illness-related absences. Emphasized the importance of environmental cleanliness and frequent handwashing with soap and water to prevent viral transmission. Patient was informed and verbally consented to the use of an ambient scribe for clinic note documentation during this visit. Coding Level of Care Code Est Pt Level 3 (37789) Diagnoses Viral gastroenteritis A08.4
[2024-11-01 09:24] VITALS: BP 100/62; PULSE 50; TEMP 36.6; O2SAT 99
== END 2024-11-01 13:04 | disposition home or self-care (01) ==
PROVIDERS: PCP Internal Medicine; Visit Provider Physician Assistant
DX: A08.4 Viral intestinal infection, unspecified (principal)

== ENCOUNTER 2025-06-17 10:36 | Outpatient (AMB) | payer BC, SELFPAY ==
[2025-06-17 10:39] VITALS: BP 120/72; PULSE 68; TEMP 36.9; O2SAT 98; BMI 29.6
--- NOTE | 2025-06-17 10:39 | MHC.PC.OV ---
Vital Signs 06/17/25 10:39 Height 5 ft 8 in Weight 195 lb BMI 29.6 BP 120/72 Blood Pressure Location Lt brachial Position Sitting Pulse 68 Pulse Source Pulse Oximeter Temp 98.4 F Temp Source Oral Pulse Oximetry (%) 98 Oxygen Delivery Method Room Air Intake Visit Reasons: Annual PE Intake Note: Pt is here today for PE. Allergies No Known Allergies Allergy (Verified 06/17/25 10:52) Medication List - Last Reconciled 06/17/25 by Michelle Larsen MD No Known Home Meds Tobacco use date assessed: 06/17/25 Dental Screening Dental Screen Date: 06/17/25 Did you have a dental visit in the last 12 months?: Yes Did you have a dental problem in the last 6 months where you did not have access to dental care?: No Was dental information given to patient?: Patient has dentist HPI Annual PE HPI Details Pt presents for PE PFSH Medical History Hyperlipidemia Shoulder pain, right Annual physical exam Tinnitus Vertigo Surgical History No pertinent past surgical history Family History Mother No problems noted. Social History Household Members Other:: lives with parents, works for [employer] Housing: House Patient Tobacco Use Status: Never used Tobacco e-Cigarette/Vaping Use: Never Used Second Hand Smoke Exposure: Yes service: No Current occupational status: employed Cognitive needs: No Hearing needs: No Vision needs: No Questionnaire PHQ-9 Over the last 2 weeks, how often have you been bothered by any of the following problems? 1. Little interest or pleasure in doing things: not at all 2. Feeling down, depressed, or hopeless: not at all 3. Trouble falling or staying asleep, or sleeping too much: not at all 4. Feeling tired or having little energy: not at all 5. Poor appetite or overeating: not at all 6. Feeling bad about yourself - or that you are a failure or have let yourself or your family down: not at all 7. Trouble concentrating on things, such as reading the newspaper or watching television: not at all 8. Moving or speaking so slowly that other people could have noticed. Or the opposite - being so fidgety or restless that you have been moving around a lot more than usual: not at all 9. Thoughts that you would be better off or of hurting yourself in some way: not at all Total score: 0 Depression Screening Interpretation: Negative Depression Screening Done: Yes 12875 - PHQ-9 Billing: Yes Source: Developed by Drs. Kang Givens, Sherly Blal, Nick Junior and colleagues, with an educational freddy from [employer]. Thrive Questionnaire Date Thrive assessed: 06/17/25 I am a: Patient What is your living situation today?: I have a steady place to live Within the past 12 months, did the food you bought not last and you didn't have the money to get more?: Never true Within the past 12 months, did you worry whether your food would run out before you got money to buy more?: Never true Do you have trouble paying for medicines?: No Do you have trouble getting transportation to medical appointments?: No Do you have trouble paying your heating and electricity bill?: No Do you have trouble taking care of your child, family member or friend?: No Do you have trouble with day-to-day activities such as bathing, preparing meals, shopping, managing finances, etc.?: No Are you currently unemployed and looking for a job?: No Are you interested in more education?: No Please select the resources that you would like help with: None Currently or been in a relationship where the following occur: No concerns reported THRIVE Score: 0 AUDIT C Alcohol Use Questionnaire (AUDIT-C) 1. How often do you have a drink containing alcohol?: 4 or more times a week 2. How many drinks containing alcohol do you have on a typical day when you are drinking?: 1 or 2 3. How often do you have six or more drinks on one occasion?: Never Total Score: 4 FAMILIA-7 AMB Questionnaire FAMILIA-7 Date FAMILIA - 7 assessed: 06/17/25 Feeling nervous, anxious, or on edge: 1 = Several days Not being able to stop or control worryin = Not at all Worrying too much about different things: 0 = Not at all Trouble relaxin = Not at all Being so restless that it is hard to sit still: 0 = Not at all Becoming easily annoyed or irritable: 0 = Not at all Feeling afraid as if something awful might happen: 0 = Not at all Total FAMILIA-7 score (0-4 normal; 5-9 mild; 10-14 moderate; 15-21 severe): 1 Source: Developed by Drs. Kang Givens, Sherly Ball, Nick Junior and colleagues, with an educational freddy from [employer]. FAMILIA-7 Assessment Billing FAMILIA-7 Assessment Tool: FAMILIA-7 Assessment 13028 Review of Systems Const All systems reviewed & are unremarkable except as noted in HPI and below Eyes Reports no additional complaints ENT Reports no additional complaints Card Reports no additional complaints Resp Reports no additional complaints GI Reports no additional complaints Reports no additional complaints Physical exam (Primary Care) Vital Signs: Last Vital Signs Temp 98.4 F 06/17/25 10:39 Pulse 68 06/17/25 10:39 BP 120/72 06/17/25 10:39 Pulse Ox 98 06/17/25 10:39 Oxygen Delivery Method Room Air 06/17/25 10:39 BMI result Body Mass Index 29.6 Tobacco/Smoking Status: Tobacco use Status Tobacco use date assessed 06/17/25 06/17/25 10:54 Patient Tobacco Use Status Never used Tobacco 06/17/25 10:54 e-Cigarette/Vaping Use Never Used 06/17/25 10:41 PHQ-9: PHQ-9 Score PHQ-9: Total score 0 06/17/25 10:54 Depression Screening Interpretation: Negative Thrive Assessment: Date of Thrive Assessment Date Thrive assessed 06/17/25 06/17/25 10:54 Currently or been in a relationship where the following occur: No concerns reported Const General: no acute distress HENMT Head: Yes normal to inspection Ears: hearing grossly normal bilaterally Face and sinus: Yes normal facial exam Mouth: Normal oral and palatal mucosa present Eyes General: appearance normal, both eyes and all related structures Neck Neck: Yes no lymphadenopathy and Yes supple Resp Effort & Inspection: normal respiratory effort Auscultation: clear to auscultation bilaterally Cardio Rhythm: regular rhythm Heart sounds: S1 normal heart sound present and S2 normal heart sound present GI Inspection: Yes normal to inspection Palpation (GI): Soft to palpation Percussion: Yes normal to percussion Auscultation: normal bowel sounds Coding Level of Care Code Est Pt Prev Care 18-39y(98849) Diagnoses Annual physical exam Z00.00 Hyperlipidemia E78.5 Additional Codes FAMILIA-7 Assessment Billing - FAMILIA-7 Assessment Tool: FAMILIA-7 Assessment 96665 ([id number]) PHQ-9 - 30353 - PHQ-9 Billing: Yes ([id number]) Assessment & Plan Assessment & Plan (1) Annual physical exam: Code(s): Z00.00 - Encounter for general adult medical examination without abnormal findings Category: Medical Plan: Well-balanced diet regular physical activity discussed with the patient (2) Hyperlipidemia: Code(s): E78.5 - Hyperlipidemia, unspecified Category: Medical Plan: Low-cholesterol diet discussed with the patient, he will return for fasting blood work Orders: Orders Complete Blood Count Auto Diff Today E78.5 - Hyperlipidemia, unspecified, Z00.00 - Encounter for general adult medical examination without abnormal findings UA w Microscopic Today E78.5 - Hyperlipidemia, unspecified, Z00.00 - Encounter for general adult medical examination without abnormal findings Comprehensive [place]. Panel Fast 1 Year E78.5 - Hyperlipidemia, unspecified, Z00.00 - Encounter for general adult medical examination without abnormal findings Lipid Panel 1 Year E78.5 - Hyperlipidemia, unspecified, Z00.00 - Encounter for general adult medical examination without abnormal findings Comprehensive [place]. Panel Fast Today E78.5 - Hyperlipidemia, unspecified, Z00.00 - Encounter for general adult medical examination without abnormal findings Lipid Panel Today E78.5 - Hyperlipidemia, unspecified, Z00.00 - Encounter for general adult medical examination without abnormal findings TSH reflex Free T4 Today E78.5 - Hyperlipidemia, unspecified, Z00.00 - Encounter for general adult medical examination without abnormal findings Complete Blood Count Auto Diff 1 Year E78.5 - Hyperlipidemia, unspecified, Z00.00 - Encounter for general adult medical examination without abnormal findings UA w Microscopic 1 Year E78.5 - Hyperlipidemia, unspecified, Z00.00 - Encounter for general adult medical examination without abnormal findings
== END 2025-06-17 11:14 | disposition home or self-care (01) ==
LOC: HO.HMCC 10:37
PROVIDERS: PCP Internal Medicine; Visit Provider Internal Medicine
DX: Z00.00 Encounter for general adult medical examination without abnormal findings (principal); E78.5 Hyperlipidemia, unspecified

== ENCOUNTER → 2025-06-17 10:36 | Outpatient (BNVA) | payer BC, SELFPAY | PROVIDERS: PCP Internal Medicine; Visit Provider Internal Medicine | DX: Z00.00 Encounter for general adult medical examination without abnormal findings (principal); E78.5 Hyperlipidemia, unspecified | CPT/HCPCS: 96127 ==

== ENCOUNTER 2025-09-15 10:18 | Outpatient (REF) | payer BC, SELFPAY ==
[2025-09-15 13:36] LABS: MANUAL DIFF FLAG NO
[2025-09-15 13:44] LABS: Appearance Urine Clear; Glucose Urine UA Negative (Negative); PH 6.5 (5.0-9.0); Specific Gravity - Urine 1.020 (1.005-1.025)
[2025-09-15 13:51] LABS: Hematocrit 46.8 % (42.0-52.0); Hemoglobin 15.9 g/dl (14.0-18.0); Imm Gran Abs Auto 0.01 X10*3/uL (0.00-0.03); Imm Gran Pct Auto 0.2 % (0.0-0.4); Lymphocytes Absolute Auto 2.1 X10*3/uL (1.2-4.9); Mean Corpuscular HGB Conc 34.0 g/dl (31.0-36.0); Mean Corpuscular Hemoglobin 31.1 pg (27.0-33.0); Mean Corpuscular Volume 91.6 fL (80.0-98.0); NRBC Abs Auto 0.000 X10*3/uL (0.0-0.012); NRBC Pct Auto 0.0 /100WBC (0.0-0.2); Platelet Count 216 X10*3/uL (160-400); Red Blood Count 5.11 X10*6/uL (4.60-5.80); White Blood Count 5.5 X10*3/uL (4.8-10.8)
[2025-09-15 14:18] LABS: Alanine Aminotransferase 27 U/L (0-40); Albumin Level 5.0 g/dL (3.5-5.0); Alkaline Phosphatase 61 U/L (39-117); Anion Gap 9 (12-20); Aspartate Amino Transferase 28 U/L (5-37); Blood Urea Nitrogen 15 mg/dL (9-16); Calcium 9.4 mg/dL (8.4-10.2); Carbon Dioxide 31 mmol/L (22-29); Chloride 104 mmol/L (96-108); Cholesterol 240 mg/dL (<200); Estimated Glomerular Filt Rate > 60; HDL Cholesterol 41 mg/dL (>40); Potassium 4.0 mmol/L (3.3-5.1); Sodium 140 mmol/L (135-145); Total Protein 7.7 g/dL (6.5-8.0); Triglycerides 152 mg/dL (<150)
== END 2025-09-15 10:19 | disposition home or self-care (01) ==
LOC: HO.HMGCLDS 10:18
PROVIDERS: PCP Internal Medicine; Visit Provider Internal Medicine
DX: Z00.00 Encounter for general adult medical examination without abnormal findings (principal); E78.5 Hyperlipidemia, unspecified
CPT/HCPCS: 36415; 80053; 80061; 81001; 84443; 85025